=== PATIENT | male | born 1995 | race American Indian/Alaskan Native ===

== ENCOUNTER 2021-12-13 00:01 | Emergency (ER) | payer MEDICAID ==
[2021-12-13 01:39] VITALS: BP 117/80
== END 2021-12-13 16:33 | disposition left against medical advice (07) ==
LOC: ED 00:01
DX: Z00.00 Encounter for general adult medical examination without abnormal findings (principal); Z53.21 Procedure and treatment not carried out due to patient leaving prior to being seen by health care provider